=== PATIENT | male | born 1945 | race Caucasian/White ===

== ENCOUNTER → 2017-12-30 | Outpatient (CLI) | payer MEDICARE | LOC: M.RAD 11:19 | DX: K59.00 Constipation, unspecified (principal); N28.89 Other specified disorders of kidney and ureter ==

== ENCOUNTER → 2020-09-17 | Outpatient (CLI) | payer MEDICARE | LOC: M.ULTRA 15:20 | PROVIDERS: ATTEND Nurse Practitioner Family | DX: R22.1 Localized swelling, mass and lump, neck (principal) ==

== ENCOUNTER → 2021-09-12 | Outpatient (CLI) | payer MEDICARE | LOC: M.CT 11:30 | PROVIDERS: ATTEND Nurse Practitioner Family | DX: K76.89 Other specified diseases of liver (principal); N20.2 Calculus of kidney with calculus of ureter; I70.8 Atherosclerosis of other arteries; Z90.79 Acquired absence of other genital organ(s) ==